=== PATIENT | male | born 1945 | race Hispanic/Latino ===

== ENCOUNTER 2018-10-31 11:00 | Outpatient (AMBR) | payer MEDICARE, MEDICAID, SELFPAY ==
--- NOTE | 2018-10-18 09:03 | PT.OIERPT ---
PT OP Initial Eval Patient Information Visit Reasons: cva Medical Diagnosis: CVA with L hemiplegia Start of Care: 10/18/18 Date of Onset: 08/19/2017 Initial Assessment Subjective Pt is 72 yr old vietnamese speaking male here with his caregiver and for CVA with L sided hemiplegia, W/C bound. Caregiver is there about 5 hours a day and helps him with all ADL's including dressing, grooming and bathing, tranferring from W/C to the hospital bed. PLOF: he was working in the [employer] with full community mobility. 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 He is unable to stand due to contractures and tone so he squat pivots with mod/maxA x1 to transfer. He is unable to move the L UE and doesn't have control of L LE which is why the goal of standing and walking isn't realistic. He would need some static progressive ROM devices in order to extend knees. Short Term and Clinical Dietitian Goals 1. Ind with HEP 2. Pt will squat pivot transfer with min/mod A x1 3. Pt will transfer from supine to sit with minAx1 Treatment Plan 90 day POC in order to complete visits. Pt requires skilled therapy in order to increase strength, decrease pain and address aforementioned impairments. Rx may consist of Therex, Manual therapy, Neuromuscular re-education, Modalities as indicated-moist heat packs, ice packs, estim Frequency and Duration 2x a week for 6 weeks Certification Dates: 10/18/18 to 01/16/19 Office Procedures PT Procedures PT Date of Service: 10/18/18 OP PT Eval High Complex 45 minutes: Yes
--- NOTE | 2018-10-22 18:42 | PT.ODAYNRPT ---
PT Outpatient Daily Note Date of Service: October 22, 2018 OP Daily Note Visit Reasons: cva Outpatient Physical Therapy Treatment Date: 10/22/18 Subjective: Same as time of evaluation Objective: See F/S for therex MT: PROM of L LE into hip and knee extension x10' Assessment: L hip contractures into flexion and adduction due to how he sits in the W/C. PT recommends abduction pillow to keep L LE out of adduction. Pain limits end-range PROM of L hip and knee. Plan: Continue per POC Length of Time (minutes) of Treatment: 30 Minutes Office Procedures PT Procedures PT Date of Service: 10/18/18 OP PT Eval High Complex 45 minutes: Yes PT Procedures PT Date of Service: 10/22/18 Therapeutic Exercise 15 minutes: Yes Manual Bankruptcy Law Specialist 15 minutes: Yes
--- NOTE | 2018-10-31 11:53 | PTNOTE_ITS ---
PT Outpatient Daily Note Date of Service: October 22, 2018 OP Daily Note Visit Reasons: cva Outpatient Physical Therapy Treatment Date: 10/31/18 Subjective: Doing ok today, same as last visit Objective: See F/S for therex MT: PROM of L LE into hip and knee extension x10' Assessment: L hip contractures into flexion and adduction due to how he sits in the W/C. PT recommends abduction pillow to keep L LE out of adduction. Pain limits end-range PROM of L hip and knee. Plan: Continue per POC Length of Time (minutes) of Treatment: 30 Minutes Office Procedures PT Procedures PT Date of Service: 10/18/18 OP PT Eval High Complex 45 minutes: Yes PT Procedures PT Date of Service: 10/22/18 Therapeutic Exercise 15 minutes: Yes Manual Securities Adviser 15 minutes: Yes PT Procedures PT Date of Service: 10/31/18 Therapeutic Exercise 15 minutes: Yes Manual Securities Adviser 15 minutes: Yes
== END 2018-11-02 23:59 | disposition home or self-care (01) ==
PROVIDERS: PCP Family Medicine; Referring Provider Family Medicine; Visit Provider Family Medicine
DX: I69.354 Hemiplegia and hemiparesis following cerebral infarction affecting left non-dominant side (principal); Z99.3 Dependence on wheelchair
CPT/HCPCS: 97110; 97140; 97163